=== PATIENT | female | born 1990 | race Caucasian/White ===

== ENCOUNTER → 2018-02-21 | Outpatient (CLI) | payer OTHER ==
[~2018-02-21] MED LIST: ABILIFY15 MG PO; ATIVAN0.5 MG PO; AVPAK AZITHROM250 M1 PO; CLARITIN10 MG PO; FLOVENT HF0.22 MG/AC IH; FLOVENT0.044 MG/A IH; IMIPRAMINE50 MG PO; LAMICTAL ODT200 MG MM; LAMOTRIGINE200 MG PO; LEVOTHYROXINE0.05 MG PO; LITHIUM CARBON150 MG PO; MEDROL DOSEPAK4 MG PO; PREDNISONE10 MG PO; PROPRANOLOL HCL20 MG PO; PROZAC40 MG PO; PULMICORT RESP0.5 MG INH; SEROQUEL300 MG PO; SUMATRIPTAN SUC25 MG PO; TESSALON PERLE100 M1 PO; VALIUM5 MG PO; VIMPAT100 MG PO; XANAX0.5 MG PO
[2018-02-21 10:23] LABS: FREE T4 0.93 ng/dl (0.76-1.46)
[2018-02-21 10:28] LABS: THYROID STIM HORMONE (HS) 2.02 uIU/ml (0.358-4.75)
== END | disposition home or self-care (01) ==
LOC: LAB 09:08
DX: E03.9 Hypothyroidism, unspecified (principal)

== ENCOUNTER → 2018-10-20 | Outpatient (CLI) | payer OTHER ==
[2018-10-20 10:48] LABS: FREE T4 0.99 ng/dl (0.76-1.46); THYROID STIM HORMONE (HS) 2.67 uIU/ml (0.358-4.75)
[2018-10-20 11:08] LABS: VITAMIN D, 25-HYDROXY 42.8 ng/mL (30-100)
[2018-10-20 11:09] LABS: FERRITIN 67.1 ng/mL (10.0-291.0)
[2018-10-21 06:07] LABS: THYROID PEROXIDASE (TPO) AB 7 IU/mL (0-34)
[2018-10-21 09:06] LABS: TOTAL T3 (TT3) 002188 105 ng/dL (71-180)
[2018-10-21 13:09] LABS: THYROGLOBULIN ANTIBODY <1.0 IU/mL (0.0-0.9)
[2018-10-27 15:09] LABS: T3 REVERSE 070104 17.5 ng/dL (9.2-24.1)
== END | disposition home or self-care (01) ==
LOC: LAB 09:43
PROVIDERS: Family Medicine
DX: E55.9 Vitamin D deficiency, unspecified (principal); E03.9 Hypothyroidism, unspecified; D50.9 Iron deficiency anemia, unspecified

== ENCOUNTER 2021-05-19 21:01 | Emergency (ER) | payer OTHER ==
[~2021-05-19] VITALS: Ht 152.4 cm; Wt 120.2 kg
[2021-05-19 21:42] LABS: HEMATOCRIT 42.6 % (37.0-47.0); MEAN CELL VOLUME 90.4 fl (81.0-99.0); MEAN CORPUSCULAR HGB 29.9 pg (27.0-31.0); MEAN CORPUSCULAR HGB CONC 33.1 g/dl (33.0-37.0); MEAN PLATELET VOLUME 9.5 fl (9.6-12.3); PLATELET COUNT AUTOMATED 327 10*3/uL (130-400); RED BLOOD COUNT 4.71 10*6/uL (4.10-5.10); RED CELL DISTRI WIDTH 12.5 % (0-14.5); WHITE BLOOD COUNT 11.3 10*3/uL (4.8-10.8)
[2021-05-19 21:43] LABS: MANUAL DIFF REFLEX YES
[2021-05-19 21:57] LABS: ALKALINE PHOSPHATASE 76 U/L (45-117); BUN 8 mg/dl (7-24); CHLORIDE 109 mmol/L (98-107); CREATININE 0.76 mg/dL (0.55-1.02); POTASSIUM 3.3 mmol/L (3.5-5.1); SGOT/AST 19 IU/L (3-35); SGPT/ALT 33 U/L (12-78); SODIUM 141 mmol/L (136-145); TOTAL PROTEIN 7.4 gm/dL (6.4-8.2)
[2021-05-19 22:27] LABS: ATYPICAL LYMPHS 4 % (0-0); TOTAL CELLS COUNTED 100 #CELLS
[2021-05-19 22:28] LABS: OVALOCYTES FEW; PLATELET SUFFICIENCY NORMAL (NORMAL)
[2021-05-19] MEDS ORDERED: PREDNISONE20 M1 PO (22:59)
== END 2021-05-19 23:26 | disposition home or self-care (01) ==
LOC: ED 21:01
PROVIDERS: Internal Medicine
DX: J40 Bronchitis, not specified as acute or chronic (principal); E87.2 Acidosis; E87.6 Hypokalemia; Z91.041 Radiographic dye allergy status; Z88.1 Allergy status to other antibiotic agents; Z88.6 Allergy status to analgesic agent; Z79.899 Other long term (current) drug therapy; Z90.49 Acquired absence of other specified parts of digestive tract

== ENCOUNTER 2023-04-21 17:29 | Emergency (ER) | payer OTHER ==
[~2023-04-21 17:29] MED LIST changes: +PREDNISONE20 M1 PO
[2023-04-21 17:58] LABS: BASO # 0.1 10*3/uL (0.0-0.1); BASO % 0.9 % (0.0-1.0); EOS # 0.2 10*3/uL (0.0-0.4); EOS % 2.4 % (1.0-4.0); HEMATOCRIT 44.1 % (37.0-47.0); LYMPH # 2.7 10*3/uL (1.3-4.4); LYMPH % 34.6 % (27.0-41.0); MEAN CELL VOLUME 93.8 fl (81.0-99.0); MEAN CORPUSCULAR HGB 28.9 pg (27.0-31.0); MEAN CORPUSCULAR HGB CONC 30.8 g/dl (33.0-37.0); MEAN PLATELET VOLUME 9.5 fl (9.6-12.3); MONO # 0.7 10*3/uL (0.1-1.0); MONO % 9.4 % (3.0-9.0); NEUT # 4.1 10*3/uL (2.3-7.9); NEUT % 52.6 % (47.0-73.0); PLATELET COUNT AUTOMATED 293 10*3/uL (130-400); RED CELL DISTRI WIDTH 12.5 % (0-14.5); WHITE BLOOD COUNT 7.8 10*3/uL (4.8-10.8)
[2023-04-21 18:37] LABS: ALKALINE PHOSPHATASE 80 U/L (46-116); CHLORIDE 106 mmol/L (98-107); LIPASE 30 U/L (12-53); SGPT/ALT 15 U/L (5-49); TOTAL PROTEIN 7.3 gm/dL (6.0-8.0)
[2023-04-21 18:39] LABS: BUN < 5 mg/dl (9-23); ETHYL ALCOHOL < 3.0 mg/dl (<3)
[2023-04-21 19:13] LABS: BILIRUBIN Negative (Negative); BLOOD Negative (Negative); CLARITY Clear (Clear); COLOR Yellow (Yellow); GLUCOSE Negative (Negative); KETONE Negative (Negative); LEUKO ESTERASE Negative (Negative); NITRITE Negative (Negative); SPECIFIC GRAVITY <= 1.005 (1.001-1.030); UROBILINOGEN 0.2 E.U./dl (0.0-1.0)
[2023-04-21 19:20] LABS: URINE AMPHETAMINES Negative (1000ng/ml); URINE BARBITURATES Negative (200ng/ml); URINE BENZODIAZEPINES Positive (200ng/ml); URINE CANNABINOIDS (THC) Negative (50ng/ml); URINE COCAINE Negative (300ng/ml); URINE METHADONE Negative (300ng/ml); URINE OPIATES Negative (300ng/ml); URINE PHENCYCLIDINE Negative (25ng/ml)
== END 2023-04-21 20:03 | disposition home or self-care (01) ==
LOC: ED 17:29
PROVIDERS: Nurse Practitioner Family
DX: R56.9 Unspecified convulsions (principal); E87.6 Hypokalemia; J45.909 Unspecified asthma, uncomplicated; G43.909 Migraine, unspecified, not intractable, without status migrainosus; F41.9 Anxiety disorder, unspecified; F31.9 Bipolar disorder, unspecified; Z91.041 Radiographic dye allergy status; Z88.8 Allergy status to other drugs, medicaments and biological substances; Z88.5 Allergy status to narcotic agent; Z90.49 Acquired absence of other specified parts of digestive tract; V43.52XA Car driver injured in collision with other type car in traffic accident, initial encounter; Y93.89 Activity, other specified; Y92.410 Unspecified street and highway as the place of occurrence of the external cause; Y99.8 Other external cause status